=== PATIENT | male | born 1970 | race Caucasian/White ===

== ENCOUNTER 2018-10-02 08:52 | Day surgery (SDC) | payer BC ==
[2018-10-02] MEDS ORDERED: LACTATED RINGERS 1,000 ML IV ONE (09:27)
[2018-10-02] MEDS ORDERED: MIDAZOLAM 2 MG/2 ML VIAL IVP ONE (10:04)
[2018-10-02] MEDS ORDERED: fentaNYL 250 MCG/5 ML VIAL IVP ONE (10:04)
[2018-10-02 11:09] VITALS: BP 110/77
== END 2018-10-02 08:53 | disposition home or self-care (01) ==
LOC: SDS 08:52
PROVIDERS: ATTEND Internal Medicine
PROC: 0DBK8ZZ Excision of Ascending Colon, Via Natural or Artificial Opening Endoscopic (ICD-10-PCS; principal; 2018-10-02 10:00)
DX: Z12.11 Encounter for screening for malignant neoplasm of colon (principal); D12.2 Benign neoplasm of ascending colon; K64.8 Other hemorrhoids
CPT/HCPCS: 45380; J3010; J7120

== ENCOUNTER 2018-12-04 09:47 | Day surgery (SDC) | payer BC ==
[2018-12-04] MEDS ORDERED: LACTATED RINGERS 1,000 ML IV ONE ×3 (10:56→12:13)
[2018-12-04] MEDS ORDERED: MIDAZOLAM 2 MG/2 ML VIAL IVP ONE (12:01)
[2018-12-04] MEDS ORDERED: fentaNYL 250 MCG/5 ML VIAL IVP ONE (12:01)
[2018-12-04 13:25] VITALS: BP 117/73
== END 2018-12-04 09:48 | disposition home or self-care (01) ==
LOC: SDS 09:47
PROVIDERS: ATTEND Internal Medicine
PROC: 0DJD8ZZ Inspection of Lower Intestinal Tract, Via Natural or Artificial Opening Endoscopic (ICD-10-PCS; principal; 2018-12-04 11:00)
DX: Z12.11 Encounter for screening for malignant neoplasm of colon (principal); Z86.010 Personal history of colon polyps; K64.8 Other hemorrhoids
CPT/HCPCS: 45378; J3010; J7120

== ENCOUNTER 2020-02-06 09:54 | Outpatient (CLI) | payer OTHER ==
[2020-02-06 10:40] LABS: BASOPHILS % (AUTO) 0.5 %; EOSINOPHILS # (AUTO) 0.1 10^3/uL (0.0-0.7); EOSINOPHILS % (AUTO) 1.1 %; HGB - HEMOGLOBIN 15.2 g/dL (14.0-18.0); LYMPHOCYTES # (AUTO) 2.3 10^3/uL (1.5-3.5); LYMPHOCYTES % (AUTO) 41.6 %; MEAN CORPUSCULAR HEMOGLOBIN 30.3 pg (27.0-31.0); MEAN CORPUSCULAR HGB CONC 33.5 g/dL (32.0-36.0); MEAN CORPUSCULAR VOLUME 90.4 fL (80.0-94.0); MEAN PLATELET VOLUME 8.7 fL (7.4-11.4); MONOCYTES # (AUTO) 0.5 10^3/uL (0.0-1.0); MONOCYTES % (AUTO) 8.2 %; NEUTROPHILS # (AUTO) 2.7 10^3/uL (1.5-6.6); NEUTROPHILS % (AUTO) 48.4 %; PLT - PLATELET COUNT 317 10^3/uL (130-450); RED BLOOD COUNT 5.02 10^6/uL (4.70-6.10); RED CELL DISTRIBUTION WIDTH 12.4 % (12.0-15.0); WHITE BLOOD COUNT 5.6 x10^3/uL (4.8-10.8)
[2020-02-06 10:58] LABS: ALBUMIN 4.1 g/dL (3.2-5.5); ALBUMIN/GLOBULIN RATIO 1.4 (1.0-2.2); ALKALINE PHOSPHATASE 58 IU/L (42-121); ALT ALANINE AMINOTRANSFERASE 19 IU/L (10-60); AST ASPARTATE AMINOTRANSFERASE 21 IU/L (10-42); BUN - BLOOD UREA NITROGEN 10 mg/dL (6-20); CALCIUM 9.1 mg/dL (8.5-10.3); CARBON DIOXIDE - CO2 27 mmol/L (21-32); CHLORIDE 103 mmol/L (101-111); CHOLESTEROL 199 mg/dL; CREATININE 0.7 mg/dL (0.6-1.2); GLUCOSE 90 mg/dL (70-100); HDL CHOLESTEROL 50 mg/dL; LDL CHOLESTEROL,CALCULATED 130 mg/dL; LDL/HDL RATIO 2.6 (<3.6); SODIUM 138 mmol/L (135-145); TOTAL PROTEIN 7.1 g/dL (6.7-8.2); VLDL CHOLESTEROL 19 mg/dL
[2020-02-07 13:02] LABS: HEPATITIS C ANTIBODY NON-REACTIVE (NON-REACTIVE)
== END 2020-02-06 09:55 | disposition home or self-care (01) ==
LOC: LAB 09:54
PROVIDERS: ATTEND Registered Nurse
DX: Z00.00 Encounter for general adult medical examination without abnormal findings (principal); F41.8 Other specified anxiety disorders; F42.9 Obsessive-compulsive disorder, unspecified
CPT/HCPCS: 36415; 80050; 80061; 83721; 84153; 86317; 86803

== ENCOUNTER 2020-05-28 10:32 | Outpatient (CLI) | payer OTHER ==
--- NOTE | 2020-05-28 11:50 | XRAY Report ---
PROCEDURE: Chest 2 View X-Ray INDICATIONS: ACQUIRED DEFORMITY OF CHEST AND RIB TECHNIQUE: 2 view(s) of the chest. COMPARISON: None. FINDINGS: Surgical changes and devices: None. Lungs and pleura: No pleural effusions or pneumothorax. Lungs are clear. Mediastinum: Mediastinal contours are normal. Heart size is normal. Bones and chest wall: Of the xiphoid and sternum appear grossly normal. Visualized ribs are radiograp hically intact. Remaining thoracic osseous structures are within normal limits. IMPRESSION: Normal chest radiographs. Reviewed by: Lucian Garcia MD on 05/28/2020 10:49 AM [facility] Approved by: Lucian Garcia MD on 05/28/2020 10:49 AM [facility] Station ID: [id number]
== END 2020-05-28 10:33 | disposition home or self-care (01) ==
LOC: DI 10:32
PROVIDERS: ATTEND Registered Nurse
DX: M95.4 Acquired deformity of chest and rib (principal)

== ENCOUNTER 2021-09-12 18:41 | Emergency (ER) | payer OTHER ==
--- NOTE | 2021-09-12 20:15 | ED Physician Documentation ---
PD HPI UPPER EXT INJURY - Stated complaint Stated Complaint: LEFT FINGER LAC - Chief complaint Chief Complaint: Laceration - History obtained from History obtained from: Patient - History of Present Illness Location: Left, Finger - Additonal information Additional information: Patient is a 51-year-old male with a laceration to his left index finger on the volar aspect. Patient was sharpening a mower blade and accidentally cut himself. His last tetanus was within 5 years. He does not take any blood thinners. He has been able to control the bleeding with pressure. He denies injury elsewhere. He had just cleaned and sharp and the mower blade prior to cu tting himself and was wearing a glove over his hand as well which was cut. Review of Systems Constitutional: denies: Fever Nose: denies: Congestion Cardiac: denies: Chest pain / pressure Respiratory: denies: Dyspnea GI: denies: Abdominal Pain Skin: reports: Laceration (s) Musculoskeletal: denies: Back pain Neurologic: denies: Headache PD PAST MEDICAL HISTORY - Past Medical History Past Medical History: Yes Cardiovascular: None Respiratory: Sleep apnea, CPAP use Endocrine/Autoimmune: None GI: None : None HEENT: Chronic vision loss Psych: Depression Musculoskeletal: None Derm: Herpes zoster - Past Surgical History Past Surgical History: Yes Ortho: Carpal Tunnel surgery HEENT: Tonsil/Adenoidectomy, Other - Present Medications Home Medications: Ambulatory Orders Medication Instructions Recorded Confirmed Citalopram [CeleXA] 10 mg PO DAILY 09/12/21 09/12/21 - Allergies Allergies/Adverse Reactions: Allergies Allergy/AdvReac Type Severity Reaction Status Date / Time No Known Drug Allergies Allergy Verified 09/12/21 18:57 - Social History Does the pt smoke?: Yes Smoking Status: Current every day smoker PD ED PE NORMAL - General General: Alert and oriented X 3, No acute distress, Well developed/nourished - HEENT HEENT: Atraumatic - Respiratory Respiratory: No respiratory distress - Derm Derm: Normal color - Extremities Extremities: No tenderness to palpate, Normal ROM s pain, Other (2.5 cm lacerati on to fingertip pad of left index finger, full range of motion at all joints, brisk cap refill, sensation grossly intact, No signs of tendon injury) - Neuro Neuro: No motor deficit, No sensory deficit PD ED PE EXPANDED - Extremities SIMON UE/Hands Visual: 1 - laceration Results - Vitals Vitals: Vital Signs - 24 hr 09/12/21 09/12/21 18:54 20:32 Temperature 36.7 C 36.7 C Heart Rate 67 66 Respiratory 14 16 Rate Blood Pressure 129/77 126/76 O2 Saturation 100 100 Oxygen O2 Source Room air Procedures - Laceration (location) Left index finger Wound type: Linear, Irregular (L-shaped), Clean Neurovascular status: Sensory intact, Motor intact, Vascular intact Tendon involvement: Tendon intact Anesthesia: Lidocaine 1% Wound preparation: Hibiclens, Irrigated copiously NS Skin layer closure: Sutures - enter # (5) Other: Patient tolerated well, No complications, Neurovascular intact, Dressing applied, Tetanus UTD PD MEDICAL DECISION MAKING - ED course ED course: Patient with laceration to left index finger. Wound is clean with no signs of foreign body.His tetanus was up-to-date. Wound was cleaned and sutured which patient tolerated well. No signs of tendon injury. Patient is aware of wound care instructions and need to return for suture removal. Departure - Departure Disposition: 01 Home, Self Care Clinical Impression: Laceration of left index finger w/o foreign body w/o damage to nail Qualifiers: Encounter type: initial encounter Qualified Code(s): S61.211A - Laceration without foreign body of left index finger without damage to nail, initial encounter Condition: Stable Instructions: ED Laceration Hand Comments: Pa - You were evaluated for a cut to your left index finger. Your tetanus was up-to-date already so we did not give you A booster. Your wound was cleaned and closed with 5 stitches. A dressing was placed. Please keep this dressing on tonight. You can remove the dressing tomorrow. Please keep the wound clean and dry. Please return in 1 week (September 19) to have the stitches removed. Please return to the emergency department with any concerns such as signs of infection, redness, bleeding, abnormal discharge, increased pain. Discharge Date/Time: 09/12/21 20:32
[2021-09-12 20:34] VITALS: BP 126/76
== END 2021-09-12 20:32 | disposition home or self-care (01) ==
LOC: ED 18:41
DX: S61.211A Laceration without foreign body of left index finger without damage to nail, initial encounter (principal); W26.8XXA Contact with other sharp object(s), not elsewhere classified, initial encounter; Y93.H2 Activity, gardening and landscaping; F17.200 Nicotine dependence, unspecified, uncomplicated
CPT/HCPCS: 12001; 99281

== ENCOUNTER 2021-10-06 17:55 | Outpatient (CLI) | payer OTHER ==
--- NOTE | 2021-10-07 13:59 | XRAY Report ---
PROCEDURE: Shoulder 2 View RT INDICATIONS: XRAY TECHNIQUE: 3 views of the shoulder were acquired. COMPARISON: None. FINDINGS: Bones: No acute fractures or dislocations. Mild degenerative changes of the right acromioclavicular joint. Coracoclavicular and acromioclavicular intervals are maintained. No suspicious bony lesions. Visualized ribs appear intact. Soft tissues: No suspicious soft tissue calcifications. IMPRESSION: Right shoulder without acute fracture or dislocation. Mild right acromioclavicular osteo arthrosis. Reviewed by: Juni Diaz MD on 10/07/2021 1:58 PM PDT Approved by: Juni Diaz MD on 10/07/2021 1:58 PM PDT Station ID: [id number]
== END 2021-10-06 17:56 | disposition home or self-care (01) ==
LOC: DI.S 17:55
PROVIDERS: ATTEND Registered Nurse
DX: M19.011 Primary osteoarthritis, right shoulder (principal)

== ENCOUNTER 2021-11-03 08:17 | Outpatient (CLI) | payer OTHER ==
[2021-11-03 08:36] LABS: BASOPHILS % (AUTO) 0.7 %; EOSINOPHILS # (AUTO) 0.1 10^3/uL (0.0-0.7); EOSINOPHILS % (AUTO) 1.7 %; HCT - HEMATOCRIT 43.1 % (42.0-52.0); HGB - HEMOGLOBIN 14.9 g/dL (14.0-18.0); LYMPHOCYTES # (AUTO) 2.7 10^3/uL (1.5-3.5); LYMPHOCYTES % (AUTO) 46.1 %; MEAN CORPUSCULAR HEMOGLOBIN 30.7 pg (27.0-31.0); MEAN CORPUSCULAR HGB CONC 34.6 g/dL (32.0-36.0); MEAN CORPUSCULAR VOLUME 88.9 fL (80.0-94.0); MEAN PLATELET VOLUME 8.8 fL (7.4-11.4); MONOCYTES # (AUTO) 0.5 10^3/uL (0.0-1.0); MONOCYTES % (AUTO) 8.7 %; NEUTROPHILS # (AUTO) 2.5 10^3/uL (1.5-6.6); NEUTROPHILS % (AUTO) 42.8 %; PLT - PLATELET COUNT 298 10^3/uL (130-450); RED BLOOD COUNT 4.85 10^6/uL (4.70-6.10); RED CELL DISTRIBUTION WIDTH 12.3 % (12.0-15.0); WHITE BLOOD COUNT 5.8 x10^3/uL (4.8-10.8)
[2021-11-03 09:00] LABS: ALBUMIN 4.1 g/dL (3.2-5.5); ALBUMIN/GLOBULIN RATIO 1.7 (1.0-2.2); ALKALINE PHOSPHATASE 58 IU/L (42-121); ALT ALANINE AMINOTRANSFERASE 20 IU/L (10-60); AST ASPARTATE AMINOTRANSFERASE 25 IU/L (10-42); BILIRUBIN,TOTAL 0.8 mg/dL (0.2-1.0); BUN - BLOOD UREA NITROGEN 14 mg/dL (6-20); CALCIUM 9.1 mg/dL (8.5-10.3); CARBON DIOXIDE - CO2 28 mmol/L (21-32); CHLORIDE 102 mmol/L (101-111); CHOL/HDL RATIO 3.7 (<5.0); CHOLESTEROL 196 mg/dL; CREATININE 0.8 mg/dL (0.6-1.2); GFR - MDRD 101 (>89); GLUCOSE 90 mg/dL (70-100); HDL CHOLESTEROL 53 mg/dL; LDL CHOLESTEROL,CALCULATED 130 mg/dL; LDL/HDL RATIO 2.5 (<3.6); POTASSIUM 4.2 mmol/L (3.5-5.0); SODIUM 137 mmol/L (135-145); TOTAL PROTEIN 6.5 g/dL (6.7-8.2); TRIGLYCERIDES 67 mg/dL; VLDL CHOLESTEROL 13 mg/dL
[2021-11-03 09:09] LABS: THYROID STIMULATING HORMONE 0.82 uIU/mL (0.34-5.60)
== END 2021-11-03 08:18 | disposition home or self-care (01) ==
LOC: LAB 08:17
PROVIDERS: ATTEND Registered Nurse
DX: Z13.228 Encounter for screening for other metabolic disorders (principal); Z13.220 Encounter for screening for lipoid disorders; Z12.5 Encounter for screening for malignant neoplasm of prostate; Z13.29 Encounter for screening for other suspected endocrine disorder; Z13.0 Encounter for screening for diseases of the blood and blood-forming organs and certain disorders involving the immune mechanism
CPT/HCPCS: 36415; 80050; 80061; 83721; 84153